=== PATIENT | male | born 1940 | race Caucasian/White ===

== ENCOUNTER 2020-07-22 12:00 | Day surgery (SDC) | payer MEDICARE, OTHER ==
[~2020-07-22] VITALS: Ht 167.6 cm; Wt 58.0 kg
[~2020-07-22 12:00] MED LIST: AMLODIPINE BESYLATE PO; ARTHROTEC 50 M1 EACH PO; ASPIRIN325 MG PO; B COMPLEX1 EACH PO; B12 PO; CHONDROITIN PO; CO Q-10100 MG PO; COZAAR50 MG PO; D3 PO; FOLIC ACID PO; GLUCOSAMINE H1500 MG PO; INDAPAMIDE1.25 MG PO; L-ARGININE500 MG PO; MSM1000 M1 PO; NITROGLYCERIN1 EAC1 TD; NORCO 5-325 TA1 EACH PO; PRILOSEC20 MG PO; SPIRONOLACTONE1 GM MISC; ULTRAM50 MG PO; VITAMIN C1000 M1 PO; VITAMIN E200 UNI1; VYTORIN 10-401 EACH PO
[2020-07-22] MEDS ORDERED: CRESTOR10 MG PO (12:26)
[2020-07-22] MEDS ORDERED: NORVASC10 MG PO (12:26)
--- NOTE | 2020-07-22 13:50 | NUR ---
07/22/20 1350 Sheets,Hilaria 1345 PT ARRIVED TO PACU ON 3L VIA OXY MASK, PT ASLEEP. VSS. RESP EVEN AND UNLABORED. 1346 PT WOKE TO TACTILE STIMULI AND IS REORIENTED TO PACU, O2 REMOVED. PT EASILY FALLS BACK TO SLEEP.
--- NOTE | 2020-07-24 14:07 | PATH ---
[facility] [address] [place], [place] [address] Signed SPECIMEN(S): A COLON POLYP 60 CM SPECIMEN(S): B RECTAL POLYP SPECIMEN(S): C RECTAL POLYP SPECIMEN SOURCE: A. COLON POLYP 60 CM B. RECTAL POLYP C. RECTAL POLYP CLINICAL HISTORY: Bowel habit changes, weight loss, family history colon ca. Colon polyps x 3. MICROSCOPIC DESCRIPTION: Histologic sections of all submitted blocks are examined by light microscopy. These findings, together with the gross examination, support the pathologic diagnosis. FINAL PATHOLOGIC DIAGNOSIS: A. Colon polyp at 60 cm: - Tubular adenoma (one fragment). B. Rectal polyp: - Hyperplastic polyp (one fragment). C. Rectal polyp: - Hyperplastic polyp. JVR:[facility]:C2NR GROSS DESCRIPTION: Three specimens are received in three containers, labeled "Eugene Menard." A. The specimen, labeled "Doyle Eugene, #1," and designated on the requisition "colon polyp at 60 cm," is received in formalin and consists of two garner soft tissue fragments that measure 0.2 and 0.3 cm in greatest dimension. The specimen is entirely submitted in cassette (A1). B. The specimen, labeled "Doyle Eugene, #2," and designated on the requisition "rectal polyp," is received in formalin and consists of one garner soft tissue fragment that measures 0.6 cm in greatest dimension. The specimen is inked, bisected, and entirely submitted in cassette (B1). C. The specimen, labeled "Doyle Eugene, #3," and designated on the requisition "rectal polyp," is received in formalin and consists of two garner soft tissue fragments that measure 0.2 and 0.3 cm in greatest dimension. The specimen is entirely submitted in cassette (C1). PATIENT NAME: EUGENE MENARD PATHOLOGY DATE OF : 38 REPORT #: [id number] PHYSICIAN: KELLY PATHOLOGY PCP: INDIO VILLANUEVA MD REPORT IS CONFIDENTIAL AND NOT TO BE RELEASED WITHOUT AUTHORIZATION [facility] [address] [place], [place] [address] Signed FB (under the direct supervision of a pathologist) The Gross Description was prepared using a voice recognition system. The report was reviewed for accuracy; however, sound-alike word errors, addition and/or deletions may occur. If there is any question about this report, please contact Client Services. PERFORMING LABORATORY: The technical component was performed by [facility] [employer], [address] [place] [address] ([employer]el Plate Assembler: Alena Turk MD; CLIA# [id number]). Professional interpretation was performed [place] [address]. Diagnostician: Erick Nicholas MD Pathologist Electronically Signed 07/24/2020 Copies: ~ PATIENT NAME: EUGENE MENARD PATHOLOGY DATE OF : 38 REPORT #: [id number] PHYSICIAN: KELLY TERRY PCP: INDIO VILLANUEVA MD REPORT IS CONFIDENTIAL AND NOT TO BE RELEASED WITHOUT AUTHORIZATION
--- NOTE | 2020-07-24 15:13 | OR ---
[facility] [address] [place], [place] [address] Signed DATE OF OPERATION: 07/22/2020 SURGEON: Eugene Serrato MD PREOPERATIVE DIAGNOSIS: Colon surveillance. Last colonoscopy 2013. POSTOPERATIVE DIAGNOSIS: Polyps x3. PROCEDURES: Total colonoscopy to cecum with cold snare polypectomy x1 and cold morcellation polypectomy x2. ANESTHESIA: Intravenous sedation, fentanyl 100 mcg and Versed 5 mg. INDICATIONS: This 79-year-old white man is a patient of Dr. Villanueva who is known to me from the past. He last underwent colonoscopy in 2013. He had has some weight loss and some loose bowel movement problems. On that basis, he is referred for surveillance colonoscopy. The risks of bleeding, infection, and perforation related to colonoscopy was reviewed with him. He understands and wished to proceed. FINDINGS: The prep was good. Complete colonoscopy was undertaken of the cecum without question. There were three small polyps, one in the proximal descending colon, excised with cold morcellation technique; two in the rectum, one excised with cold snare technique and the other cold morcellation technique. The remaining colon was normal. DESCRIPTION OF PROCEDURE: The patient was brought to the endoscopy suite and placed in lateral decubitus position, given intravenous sedation to the point of slurred speech and nystagmus. Digital rectal examination was normal. An Olympus video colonoscope was passed in the rectum and manipulated throughout the colon noting a polyp in the proximal descending colon. This was excised with cold morcellation technique. The scope was advanced further ultimately to the cecum. The ileocecal valve and appendiceal orifice were normal. Scope was withdrawn from that point and examination throughout showed no sign of abnormality until retroflexed view of Electronically Signed By: EUGENE SERRATO MD 07/24/20 1513 PATIENT NAME: EUGENE MENARD OPERATIVE REPORT DATE OF : 38 REPORT #: [id number] PHYSICIAN: EUGENE SERRATO MD PCP: INDIO VILLANUEVA MD REPORT IS CONFIDENTIAL AND NOT TO BE RELEASED WITHOUT AUTHORIZATION [facility] [address] [place], [place] [address] Signed the rectum where there were two polyps, one larger than the other. The larger was excised with cold snare technique completely and the other with cold morcellation technique. The scope was removed and the patient was taken to recovery room in good condition. CONCLUDING DIAGNOSIS: Polyps x3. PLAN: Recommend repeat colonoscopy in 3 to 5 years, sooner if symptoms should occur. He will return to the ongoing care of Dr. Villanueva. MD DESI Heath/VIBHAL /[id number] cc: Dr. Villanueva Copies: ~ Electronically Signed By: EUGENE SERRATO MD 07/24/20 1513 PATIENT NAME: EUGENE MENARD OPERATIVE REPORT DATE OF : 38 REPORT #: [id number] PHYSICIAN: EUGENE SERRATO MD PCP: INDIO VILLANUEVA MD REPORT IS CONFIDENTIAL AND NOT TO BE RELEASED WITHOUT AUTHORIZATION
== END 2020-07-22 14:30 | disposition home or self-care (01) ==
LOC: DS 12:00 → OPS 12:00 → DS 14:00 → OPS 14:00
PROVIDERS: ATTEND Surgery
PROC: 0DBP8ZX Excision of Rectum, Via Natural or Artificial Opening Endoscopic, Diagnostic (ICD-10-PCS; 2020-07-22)
PROC: 0DBM8ZX Excision of Descending Colon, Via Natural or Artificial Opening Endoscopic, Diagnostic (ICD-10-PCS; principal; 2020-07-22 13:00)
DX: Z12.11 Encounter for screening for malignant neoplasm of colon (principal); D12.4 Benign neoplasm of descending colon; K62.1 Rectal polyp; I10 Essential (primary) hypertension; R63.4 Abnormal weight loss; K21.00 Gastro-esophageal reflux disease with esophagitis, without bleeding; E78.5 Hyperlipidemia, unspecified; F17.200 Nicotine dependence, unspecified, uncomplicated; Z80.0 Family history of malignant neoplasm of digestive organs; Z88.1 Allergy status to other antibiotic agents; Z88.0 Allergy status to penicillin
CPT/HCPCS: 99153; G0500; J2250; J3010

== ENCOUNTER 2024-08-24 10:55 | Day surgery (SDC) | payer MEDICARE ==
[~2024-08-24] VITALS: Ht 167.6 cm; Wt 56.2 kg
--- NOTE | ~2024-08-24 | OR ---
[facility] [address] [place], [place] [address] Draft DATE OF OPERATION: 08/24/2024 SURGEON: Eugene Serrato MD PREOPERATIVE DIAGNOSIS: History of adenomatous polyp, 60 cm, five years ago. POSTOPERATIVE DIAGNOSIS: Normal colon. PROCEDURE: Total colonoscopy. ANESTHESIA: Intravenous sedation, fentanyl 125 mcg and Versed 5 mg. INDICATIONS FOR THE PROCEDURE: This 83-year-old white man is a patient of Dr. Villaseñor. He has family history of colon cancer in maternal grandfather. He underwent colonoscopy essentially five years ago and was found to have a polyp at 60 cm, which was a tubular adenoma. He is currently symptom free, having no bleeding, diarrhea, or constipation. He has been recommend to have surveillance colonoscopy based on his prior history. He understands the risk of bleeding, infection, and perforation related to colonoscopy and wished to proceed. FINDINGS: The prep was good. Complete colonoscopy was undertaken. A full intubation of the cecum was not forthcoming due to the patient's discomfort, angulation deformity, and so forth. The remaining colon was entirely normal with no sign of polyps, diverticular formation, colitis, or cancer. DESCRIPTION OF PROCEDURE: The patient was brought to the endoscopy suite and placed in the lateral decubitus position, given intravenous sedation to the point of slurred speech and nystagmus. Digital rectal examination was normal. An Olympus video colonoscope was passed in the rectum and manipulated throughout the colon. Additional sedation was given as needed due to the patient's discomfort. With all due care, the scope was advanced beyond the hepatic flexure visualizing the right colon. Further advancement of the scope was undertaken, although full intubation of the cecum was not forthcoming. Visualization from distance did show it to be normal. The PATIENT NAME: EUGENE MENARD OPERATIVE REPORT DATE OF : 38 REPORT #: [id number] PHYSICIAN: EUGENE SERRATO MD PCP: ARYAN VILLASEÑOR MD REPORT IS CONFIDENTIAL AND NOT TO BE RELEASED WITHOUT AUTHORIZATION [facility] [address] [place], [place] [address], [place] [address] Draft scope was then withdrawn and examination throughout showed no sign of polyps, diverticular formation, colitis, or cancer. Retroflexed view was normal as well. The scope was removed. The patient was taken to the recovery room in good condition. CONCLUDING DIAGNOSIS: Normal colon. PLAN: Recommend repeat colonoscopy in 7-10 years, sooner if symptoms should occur. He will return to the ongoing care of Dr. Villaseñor. MD DESI Heath/NEVAEH /[id number] cc: Dr. Villaseñor Copies: ~ PATIENT NAME: EUGENE MENARD OPERATIVE REPORT DATE OF : 38 REPORT #: [id number] PHYSICIAN: EUGENE SERRATO MD PCP: RAYAN VILLASEÑOR MD REPORT IS CONFIDENTIAL AND NOT TO BE RELEASED WITHOUT AUTHORIZATION
[~2024-08-24 10:55] MED LIST changes: +ARTHRITIS PAIN150 GM TP; +CARAFATE1 GM PO; +CEFAZOLIN SODIUM 2 GM/20 ML SYR IV SCH; +CLONIDINE HCL0.1 M1 PO; +CRESTOR10 MG PO; +DICLOFENAC-MIS1 EAC3 PO; +DOXAZOSIN MESYLA1 MG PO; +GLUCOSAMINE HC500 MG PO; +IBLOOD GLUCOSE TEST STRIP 1 EA TEST VI PRN; +LACTATED RINGER'S 1,000 ML IV SCH; +LIDOCAINE HCL 1% 5 ML SDV INJ ONE; +MIDAZOLAM HCL 5 MG/5 ML VIAL IV PRN; +MSM1000 MG PO; +NORVASC10 MG PO; +OMEPRAZOLE20 MG PO; +fentaNYL citrate 100 MCG/2 ML VIAL IV PRN
[2024-08-24 11:18] VITALS: BP 178/58
[2024-08-24] MEDS ORDERED: ASPIRIN81 MG PO (11:22)
[2024-08-24] MEDS ORDERED: PEPCID20 MG PO (11:27)
[2024-08-24] MEDS ORDERED: MIDAZOLAM HCL 5 MG/5 ML VIAL ONE (11:52)
[2024-08-24] MEDS ORDERED: fentaNYL citrate 100 MCG/2 ML VIAL ONE (11:52)
--- NOTE | 2024-08-24 12:55 | NUR ---
08/24/24 1255 Sheets,Hilaria 1249 PT ARRIVED TO PACU ON 4L VIA OXYMASK. PT WAKES EASILY TO VERBAL STIMULI. PT DENIES CONCERNS AND EASILY FALLS BACK TO SLEEP. PT ENCOURAGED TO PASS GAS NEEDED.
[2024-08-24 13:33] VITALS: BP 122/53
== END 2024-08-24 13:39 | disposition home or self-care (01) ==
LOC: OPS 10:55 → DS 10:56 → OPS 13:15
PROVIDERS: ATTEND Surgery
PROC: 0DJD8ZZ Inspection of Lower Intestinal Tract, Via Natural or Artificial Opening Endoscopic (ICD-10-PCS; principal; 2024-08-24 13:15)
DX: Z12.11 Encounter for screening for malignant neoplasm of colon (principal); I10 Essential (primary) hypertension; Z80.0 Family history of malignant neoplasm of digestive organs; Z72.0 Tobacco use; Z87.19 Personal history of other diseases of the digestive system; Z86.0100 Personal history of colon polyps, unspecified
CPT/HCPCS: 99153; G0500; J2250; J3010; J7121